=== PATIENT | male | born 1970 | race Caucasian/White ===

== ENCOUNTER 2020-03-05 12:56 | Emergency (ER) | payer OTHER, SELFPAY ==
[2020-03-05] VITALS (9 sets, daily range): BP systolic 155–174; BP diastolic 106–119; PULSE 90–108; RESP 16–20; TEMP 36.6; O2SAT 95–99; BMI 32.8
--- NOTE | 2020-03-05 13:02 | NURSING ---
NO OLD EKGS
--- NOTE | 2020-03-05 13:18 | CT_ITS ---
STUDY: CT BRAIN WITHOUT CONTRAST REASON FOR EXAM: Male, 49 years old. Headache, hypertensive crisis, chest pain. RADIATION DOSAGE (If Supplied By Facility): CTDIvol = ( 44.99 ) mGy, DLP = ( 796.11 ) mGycm TECHNIQUE: Transaxial CT imaging of the brain was performed without administration of intravenous contrast material. Individualized dose optimization techniques were used for this CT. COMPARISON: No relevant priors. FINDINGS: Normal soft tissue structures. Normal calvarium. Normal size ventricles and extra-axial spaces for the patient''s age. Normal white matter tracts of the cerebral hemispheres. Normal basal ganglia and thalami. Normal brainstem. Normal cerebellum. There is no intracranial hemorrhage. There are no findings of an acute ischemic infarction. Normal visualized paranasal sinuses. CT/Brain/Head without Contrast IMPRESSION: Normal unenhanced CT scan of the brain. Electronically Signed: Akash Nash, at 14:25 EDT , Service support ,
--- NOTE | 2020-03-05 13:18 | EKG12_ITS ---
Test Reason : CP Blood Pressure : / mmHG Vent. Rate : 093 BPM Atrial Rate : 093 BPM P-R Int : 132 ms QRS Dur : 094 ms QT Int : 358 ms P-R-T Axes : 016 003 024 degrees QTc Int : 445 ms Normal sinus rhythm Normal ECG Confirmed by LEANN PHIPPS, TYRESE ([id number]), supervising editor news reel KARISSA LEE ([id number]) on 03/07/2020 9:35:45 AM Referred By: DC Confirmed By:VERN NORIEGA MD
[2020-03-05 13:31] LABS: Absolute Lymphocyte Count 2.19 X10^3/uL (0.83-4.51); Basophil# 0.03 X10^3/uL; Basophil% 0.4 % (0-1); Eosinophil# 0.11 X10^3/uL; Eosinophils% 1.6 % (0-5); Hematocrit 41.4 % (40-54); Hemoglobin 14.4 g/dL (13.0-16.5); Lymphocyte # 2.19 X10^3/ul (4.0); Lymphocyte % 31.6 % (19-41); Mean Corp Hgb Conc 34.8 g/dL (32-36); Mean Corpuscular Hgb 30.6 pg (27.0-32.0); Mean Corpuscular Volume 88.1 fL (80-94); Mean Platelet Vol. 9.1 fl (6.2-12.0); Monocyte# 0.57 X10^3/uL; Monocyte% 8.2 % (0-10); NRBC Flagged by Analyzer 0 % (0-5); Neutrophil # 3.98 X10^3/uL (2.7-7.7); Neutrophil % 57.6 % (47-70); Platelet Count 264 K/mm3 (150-450); RBC Distribution Width CV 12.5 % (11.6-14.6); RBC Distribution Width SD 40.9 fl (35.1-43.9); White Blood Count 6.9 K/mm3 (4.4-11.0)
[2020-03-05 13:47] LABS: Anion Gap 4 (5-15); BUN 15 mg/dL (7-18); BUN/Creat Ratio 16.2 RATIO (10-20); Calcium,Total 9.7 mg/dL (8.5-10.1); Chloride 103 mmol/L (98-107); Creatinine, Serum 0.93 mg/dL (0.70-1.30); EST Glomerular Filtration Rate 91 mL/min (>60); Est Glom Filt Rate - Afr Amer 110 mL/min (>60); Estimated Creatinine Clearance 103.14 ml/min; Glucose 92 mg/dL (74-106); Potassium 3.5 mmol/L (3.5-5.1); Sodium Level 135 mmol/L (136-145)
[2020-03-05] MEDS: Nitroglycerin SL (ED/IMG/CATH) 0.4 MG TABLET SUBLINGUAL ×3 (13:55→14:05)
--- NOTE | 2020-03-05 13:58 | ED.RN ---
PT VERY ANXIOUS C/O CHEST PAIN AND PALPITATIONS, REQUESTED NITRO. [address] CHURCH. PT REPEATEDLY KEPTS LOOKING AT MONITOR.
--- NOTE | 2020-03-05 14:04 | ED.DCSUM_ITS ---
- ER Visit Summary Date of Service: 03/05/20 Chief Complaint: Headache and chest pain History of Present Illness: The patient is a 49 M who presents today for hypertensive crisis. He said that for the last couple days his blood pressures have been high and he is having a headache with chest pain. He also had some blurred vision. He has been seen for this in the past. He takes his blood pressure medicines regularly and has not run out. He denies any history of coronary disease, stroke. His blood pressure at home was 170/120s. Physical Examination: Blood pressure 155/110 and heart rate 108. Otherwise vitals unremarkable. Afebrile. Cranial nerves grossly intact. No focal or lateralizing neurologic abnormalities. NIH stroke scale is 0. Heart is tachycardic regular. Lungs clear. Skin unremarkable. Extremities nontender with no edema. Test Results: EKG shows sinus rhythm at a rate of 93. No sign of ischemia or infarction pattern. CBC normal. Sodium 135, anion gap 4, troponin normal. Chest x-ray and CT brain pending. Emergency Department Course and Treatment: Patient's blood pressure is slightly elevated. He has vague symptoms. I am not convinced he has endorgan damage, but with his history and his symptoms, I will evaluate for this. So far his work-up has been unremarkable. I am awaiting CT brain and chest x-ray. Patient continued to have a blood pressure of 159/116. He requested nitro as this has helped in the past. I believe this is reasonable. Will reassess. CT brain and chest x-ray were unremarkable. Patient remained slightly hypertensive. He was treated with Catapres 0.1 mg p.o. Will recheck his blood pressure and discharge for outpatient follow-up. Treatment Plan: As above Disposition: Pending Impression: Hypertension This note was generated with [employer] dictation software. It may contain incorrect words, spelling, and punctuation that were not noted in review of the chart prior to signing ED Disposition - Plan for ED Patient: Referrals: Care Physician,No Primary [Primary Care Provider] -
--- NOTE | 2020-03-05 14:11 | RAD_ITS ---
STUDY: X-RAY CHEST REASON FOR EXAM: Male, 49 years old. Chest pain, hypertensive TECHNIQUE: Single AP portable view of the chest. COMPARISON: None. FINDINGS: EKG electrodes are seen. The lungs are clear and expanded. Scattered calcified granulomas. There is no demonstrated pleural abnormality. Normal size heart. Normal mediastinum and brigid. Normal visualized pulmonary arteries. Normal visualized aortic arch and descending thoracic aorta. Normal visualized thoracic spine. Normal visualized ribs, clavicles, and shoulders. There is no demonstrated abnormality of the visualized soft tissue structures of the upper abdomen. RAD/Chest 1 View (Portable) IMPRESSION: Normal x-ray examination of the chest. Electronically Signed: Akash Nash, at 14:26 EDT , Service support ,
--- NOTE | 2020-03-05 14:35 | ED.DEP ---
ED Disposition - Plan for ED Patient: Instructions: ED Hypertension Established Additional Instructions: follow up with your doctor
[2020-03-05] MEDS: cloNIDine HCl 0.1 MG Tablet PO (15:15)
--- NOTE | 2020-03-05 15:22 | ED.RN ---
IV DC'ED, CATHETER INTACT, SMALL GAUZE DRESSING PLACED. DISCHARGE INSTRUCTIONS GIVEN TO AND REVIEWED WITH PATIENT, PATIENT DENIES QUESTIONS OR CONCERNS AND VOICES UNDERSTANDING OF DISCHARGE INSTRUCTIONS. PT AMBULATES OUT OF ROOM WITHOUT DIFFICULTY.
== END 2020-03-05 15:23 | disposition home or self-care (01) ==
LOC: ED 13:39
PROVIDERS: Emergency Provider Emergency Medicine
DX: I10 Essential (primary) hypertension (principal)
CPT/HCPCS: 70450; 71045; 80048; 84484; 85025; 93005; 99285; A4216

== ENCOUNTER → 2023-04-05 | Outpatient (CLI) | payer OTHER, SELFPAY ==
[2023-04-05 13:03] LABS: Hemoglobin A1c 5.2 % (3.8-5.6)
[2023-04-05 13:30] LABS: ALB/GLOB Ratio 1.1 RATIO (0.9-2.4); AST(SGOT) 20 U/L (15-37); Alanine Aminotransfer ALT/SGPT 28 U/L (16-61); Albumin, Serum 3.9 g/dL (3.2-5.0); Alkaline Phosphatase 106 U/L (45-117); Anion Gap 6 (5-15); BUN 14 mg/dL (7-18); BUN/Creat Ratio 13.3 RATIO (10-20); Calcium,Total 9.3 mg/dL (8.5-10.1); Chloride 99 mmol/L (98-107); Cholesterol 193 mg/dL (200); Creatinine, Serum 1.05 mg/dL (0.70-1.30); EST Glomerular Filtration Rate 78 mL/min (>60); Est Glom Filt Rate - Afr Amer 94 mL/min (>60); Globulin 3.5 g/dL (2.2-4.2); Glucose 109 mg/dL (74-106); High Density Lipoprotein 61 mg/dL; Protein, Total 7.4 g/dL (6.4-8.2); Sodium Level 135 mmol/L (136-145); Thyroid Stim Hormone (TSH) 0.46 uIU/mL (0.358-3.74); Triglycerides 52 mg/dL; Very Low Density Lipoprotein 10 mg/dL (5-40)
== END | disposition home or self-care (01) ==
LOC: BIMLAB 09:54
PROVIDERS: Visit Provider Internal Medicine
DX: E03.9 Hypothyroidism, unspecified (principal); I10 Essential (primary) hypertension; Z79.899 Other long term (current) drug therapy
CPT/HCPCS: 36415; 80053; 80061; 83036; 84443

== ENCOUNTER → 2023-06-30 | Outpatient (CLI) | payer OTHER, SELFPAY ==
[2023-06-30 15:08] LABS: Absolute Neutrophil Count 3.1 X10^3/uL (2.0-7.7); Basophil# 0.01 X10^3/uL; Basophil% 0.2 % (0-1); Hematocrit 40.6 % (40-54); Hemoglobin 13.7 g/dL (13.0-16.5); Lymphocyte % 26.2 % (19-41); Mean Corp Hgb Conc 33.7 g/dL (32-36); Mean Corpuscular Hgb 30.3 pg (27.0-32.0); Mean Corpuscular Volume 89.8 fL (80-94); Mean Platelet Vol. 9.1 fl (6.2-12.0); Monocyte# 0.43 X10^3/uL; Monocyte% 8.7 % (0-10); NRBC Flagged by Analyzer 0 % (0-5); Neutrophil # 3.12 X10^3/uL (2.7-7.7); Neutrophil % 62.7 % (47-70); Platelet Count 265 K/mm3 (150-450); RBC Distribution Width CV 13.1 % (11.6-14.6); RBC Distribution Width SD 43.2 fl (35.1-43.9); Red Blood Count 4.52 M/mm3 (4.6-6.2)
[2023-06-30 15:15] LABS: Vitamin B12 373 pg/mL (211-911); Vitamin D,25 Hydroxy 31.8 ng/mL
[2023-06-30 15:22] LABS: AST(SGOT) 23 U/L (15-37); Alanine Aminotransfer ALT/SGPT 35 U/L (16-61); Albumin, Serum 3.7 g/dL (3.2-5.0); Alkaline Phosphatase 97 U/L (45-117); Anion Gap 3 (5-15); BUN 13 mg/dL (7-18); BUN/Creat Ratio 11.8 RATIO (10-20); Calcium,Total 9.4 mg/dL (8.5-10.1); Chloride 103 mmol/L (98-107); EST Glomerular Filtration Rate 74 mL/min (>60); Est Glom Filt Rate - Afr Amer 89 mL/min (>60); Globulin 3.7 g/dL (2.2-4.2); Glucose 94 mg/dL (74-106); Potassium 4.1 mmol/L (3.5-5.1); Protein, Total 7.4 g/dL (6.4-8.2); Sodium Level 139 mmol/L (136-145); Thyroid Stim Hormone (TSH) 1.62 uIU/mL (0.358-3.74)
== END | disposition home or self-care (01) ==
LOC: BIMLAB 12:19
PROVIDERS: PCP Internal Medicine; Referring Provider Internal Medicine; Visit Provider Internal Medicine
DX: I10 Essential (primary) hypertension (principal); E03.9 Hypothyroidism, unspecified; R53.83 Other fatigue
CPT/HCPCS: 36415; 80053; 82306; 82607; 84443; 85025

== ENCOUNTER → 2023-07-05 | Outpatient (CLI) | payer OTHER, SELFPAY ==
--- NOTE | 2023-07-05 11:11 | RAD_ITS ---
STUDY: X-RAY - CERVICAL SPINE REASON FOR EXAM: Male, 52 years old. Neck pain status post previous fusion. TECHNIQUE: 6 view(s) of the cervical spine were obtained. COMPARISON: None FINDINGS: Normal anterior atlantoaxial articulation. Normal odontoid process. Normal cervical lordosis. Diffuse moderate uncovertebral and facet sclerosis. Anterior fusion at C5-6 with intervertebral disc prosthesis. Intervertebral disc space narrowing at C4-5 and C6-7 with osteophytes. Anterior bony neural foraminal encroachment at C5-6 and C6-7 bilaterally. Left carotid calcification. RAD/Cerv Spine 4 or 5 Views IMPRESSION: Anterior fusion at C5-6 with intervertebral disc prosthesis. Diffuse cervical spondylosis most marked at C4-5 and C6-7. Left carotid calcification. Electronically Signed: Sd Bergeron MD at 9:28 EDT ,
== END | disposition home or self-care (01) ==
LOC: MTRAD 11:11
PROVIDERS: PCP Internal Medicine; Referring Provider Internal Medicine; Visit Provider Internal Medicine
DX: M54.2 Cervicalgia (principal); Z98.1 Arthrodesis status
CPT/HCPCS: 72050

== ENCOUNTER 2023-07-20 05:49 | Day surgery (SDC) | payer OTHER, SELFPAY ==
[2023-07-20] VITALS (7 sets, daily range): BP systolic 131–148; BP diastolic 95–108; PULSE 84–99; RESP 16–18; TEMP 36.4–36.6; O2SAT 94–99; BMI 34.4
[2023-07-20] MEDS: Lactated Ringers 1,000 ML 15 ML IV (06:22)
--- NOTE | 2023-07-20 07:03 | PCM.HP.STD ---
HPI - General HPI Narrative JERARDO OSWALD, is a 52 M who presents for left knee arthroscopy, partial medial meniscectomy. No changes to H and P. RAB discussed, post op protocol, narcotic counselling. He has had percocet in the past without issue despite morphine anaphylaxis. L knee marked, ok to proceed. MR#: [id number] Acct: [id number] Name: JERARDO OSWALD Rep #: [id number] : 1970 Provider: Dr. Lucian Philip MD Age/Sex: 52/M Location[place] [facility] [place] Status: Signed Intake Intake Visit Reasons: left knee Chief Complaint: left knee Is patient in pain?: Yes Pain scale (1-10): 4 Allergies Sulfa (Sulfonamide Antibiotics) Allergy (Severe, Verified 05/24/23 08:48) Hivesmorphine Allergy (Verified 05/24/23 08:48) AnaphylaxisPenicillins [PCN] Allergy (Verified 05/24/23 08:48) Anaphylaxis Medications hydrochlorothiazide 25 mg tablet 25 mg PO DAILY 03/05/20 [History Confirmed 05/24/23] levothyroxine 50 mcg tablet 75 mcg PO DAILY 03/30/23 [History Confirmed 05/24/23] esomeprazole magnesium 20 mg capsule,delayed release (Nexium) 20 mg PO DAILY 04/05/23 [History Confirmed 05/24/23] ibuprofen 200 mg tablet 400 mg PO Q6H PRN 04/14/23 [History Confirmed 05/24/23] irbesartan 300 mg tablet 300 mg PO DAILY #90 tabs 04/26/23 [Rx Confirmed 05/24/23] quetiapine 50 mg tablet 50 mg PO DAILY sleep #90 tabs 04/26/23 [Rx Confirmed 05/24/23] PFSH Medical History Allergies Carpal tunnel syndrome GERD (gastroesophageal reflux disease) Hearing problem History of back problems History of blood transfusion History of frequent headaches Hypertension Medial meniscus tear Neuropathy Osteoarthritis Plantar fasciitis, left Tear of medial meniscus of left knee Thyroid disease Surgical History H/O inguinal hernia repair H/O shoulder surgery H/O total hip arthroplasty History of appendectomy History of carpal tunnel release History of surgical procedure History of tonsillectomy S/P cholecystectomy Status post cervical spinal fusion Family History Mother Alcoholism Anxiety Arthritis Depression Hypertension Heart disease Mental disorder CVA (cerebral vascular accident) Thyroid disorder Atrial fibrillation DementiaUnknown ParkinsonsOther Allergies Social History household members: none current occupational status: retired current occupation: Smoking Status: Never smoker Electronic Cigarette Use: not used alcohol intake: current alcohol intake frequency: a few times a week substance use type: does not use do you feel safe at home: Yes HPI left knee Details: Parts of this documentation were recorded by a scribe, this documentation accurately reflects the service provided and the decisions made by me, Dr. Lucian Philip MD 05/24/23 0847. JERARDO OSWALD is a 52 year old M here today for FU left knee pain, medial meniscus tear. Patient continues to have mechanical symptoms as well as pain mostly on the medial joint line and slightly posterior to that. Feels like the knee is slightly swollen there. Ortho Exam General General: Yes no acute distress Neurologic: Yes alert and Yes oriented x3 Psychologic: Yes reasonable and appropriate Left Knee Skin/Wound: Yes CDI, No ecchymosis, No erythema and No swelling Knee ROM: Yes ROM-Flexion 0-140 KNEE: Slightly varus alignment. Normal gait. Supplemental Info I reviewed the reports from an outside hospital in [place] IR.? There is x-rays of the left knee taken within the last year stating mild tricompartmental osteoarthritis.? There is also an MRI in June 2022 stating a complex tear of the mid body and posterior horn of the medial meniscus with the cartilage being preserved and no other abnormalities of the knee.? I was able to review those on spectra viewer - concur with the MM tear assessment. Coding Level of Care Code Off vis,est,level 3 Diagnoses Tear of medial meniscus of left knee S83.242A Assessment and Plan Assessment and Plan (1) Tear of medial meniscus of left knee: Status: Acute Plan: 52-year-old man with continued left knee pain despite extensive conservative management including 2 cortisone injections with continued mechanical symptoms and medial joint line tenderness with an MRI showing a medial meniscus tear surgical option at this point would be left knee arthroscopy, partial medial meniscectomy. He wishes to go ahead with the operation and signed the consent form for surgery as well as possible need for blood products. He is otherwise healthy non-smoker. He occasionally does take anti-inflammatories I have asked him to refrain from that for about a week before the operation. We talked about pros and cons versus benefits as well as recovery associate with surgery 1 to 2 weeks on crutches 6 weeks before returning to normal activities. He understands no further questions or concerns. Pros and cons risks and benefits were discussed with the patient including but not limited to infection, pain, stiffness, bleeding, damage to surrounding structures, neurovascular injury, recurrence or retear, failure or wear of hardware or fixation, instability, fracture, deep vein thrombosis and pulmonary embolism, anesthetic risks, , patient dissatisfaction, need for further surgery and other risks. Patient understood and wished to proceed with surgery, and signed the informed consent documentation. [facility] Medical History (Updated 07/13/23 @ 10:45 by Madi Amaya) Allergies Anxiety Arthritis Carpal tunnel syndrome Depression Fusion of spine of cervical region GERD (gastroesophageal reflux disease) Hearing problem History of back problems History of blood transfusion History of frequent headaches Hypertension Medial meniscus tear Neuropathy Non-smoker Osteoarthritis Plantar fasciitis, left TBI (traumatic brain injury) Tear of medial meniscus of left knee Thyroid disease Wears glasses Home Medications hydrochlorothiazide 25 mg tablet 50 mg PO DAILY 03/05/20 [History Last Taken Unknown] levothyroxine 50 mcg tablet 75 mcg PO DAILY 03/30/23 [History Last Taken Unknown] esomeprazole magnesium 20 mg capsule,delayed release (Nexium) 20 mg PO DAILY PRN GERD 04/05/23 [History Last Taken Unknown] ibuprofen 200 mg tablet 400 mg PO Q6H PRN pain 04/14/23 [History Last Taken Unknown] irbesartan 300 mg tablet 300 mg PO DAILY #90 tabs 04/26/23 [Rx Last Taken Unknown] epinephrine 0.3 mg/0.3 mL injection, auto-injector 0.3 ml IM Q5-15M PRN anaphylaxis #2 ea 06/30/23 [Rx Last Taken Unknown] quetiapine 100 mg tablet 100 mg PO DAILY sleep #30 tabs 06/30/23 [Rx Last Taken Unknown] ondansetron 4 mg disintegrating tablet 4 mg PO Q6H PRN nausea and vomiting #30 tabs 07/07/23 [Rx Last Taken Unknown] Allergy/AdvReac Type Severity Reaction Status Date / Time Sulfa (Sulfonamide Allergy Severe Hives Verified 07/20/23 06:09 Antibiotics) morphine Allergy Anaphylaxis Verified 07/20/23 06:09 Penicillins [PCN] Allergy Anaphylaxis Verified 07/20/23 06:09 Family History Mother Alcoholism Anxiety Arthritis Depression Hypertension Heart disease Mental disorder CVA (cerebral vascular accident) Thyroid disorder Atrial fibrillation Dementia Unknown Parkinsons Other Allergies Surgical History H/O inguinal hernia repair H/O shoulder surgery H/O total hip arthroplasty History of appendectomy History of carpal tunnel release History of surgical procedure History of tonsillectomy S/P cholecystectomy Status post cervical spinal fusion Social History household members: none current occupational status: retired current occupation: Smoking Status: Never smoker Electronic Cigarette Use: not used alcohol intake: current alcohol intake frequency: a few times a week substance use type: does not use do you feel safe at home: Yes Vital Signs Vital Signs Vital Signs: 07/20/23 06:17 07/20/23 06:17 Temperature 97.9 F Temperature Source Temporal Pulse Rate 95 Respiratory Rate 16 Respiratory Pattern Normal Blood Pressure 135/103 H Blood Pressure Mean 113 Blood Pressure Source Monitor Blood Pressure Position Semi-Fowlers Blood Pressure Location Left Arm Pulse Ox 96 Oxygen Delivery Method Room Air Weight Weight: 253 lb 8.505 oz Body Mass Index (BMI) 34.4
[2023-07-20] MEDS: Epinephrine (1 mg/ml) 1 MG/ML VIAL (07:30)
[2023-07-20] MEDS: Clindamycin 900 MG/50 ML BAG 75 MG IV (07:37)
[2023-07-20] MEDS: Bupivacaine 0.25% 30 ML Vial (08:08)
--- NOTE | 2023-07-20 08:11 | PCM.OPRPT ---
Problems Associated Problem List Diagnoses (1) Tear of medial meniscus of left knee: Report of Operation Date of Procedure: 07/20/23 Pre-Operative Diagnosis: L knee medial meniscus tear Post-Operative Diagnosis: same Surgery/Procedure Performed:: left knee arthroscopy, partial medial meniscectomy Surgeon: Lucian Philip Type of Anesthesia: General and Local Anesthesiologist: Dread Morales Estimated Blood Loss (mL): 10 Description of Procedure: Patient brought to the operating room theater. Placed supine on the table. General anesthesia induced. Bony prominences padded. SCD on the nonoperative leg. Clindamycin 900 mg IV given for prophylaxis due to penicillin anaphylaxis allergy. 34 inch tourniquet applied to the left thigh appropriately padded. Stress positioner to the patient's left side. Lower extremity prepped and draped with chlorhexidine-based prep solution allowing over 3 minutes drying time prior to draping. Preoperative timeout performed to confirm the site patient and the surgery. I began by elevating the limb inflating the tourniquet to 250 mmHg. Use standard anterolateral and anteromedial arthroscopy portals. Did a full diagnostic arthroscopy. No loose bodies. Patellofemoral cartilage as well as cartilage on the lateral compartment of the knee was normal. Patella sitting normally in the groove. Ligamentum mucosum debrided ACL and PCL appeared normal and stable to probing. Lateral meniscus normal appearance and stable to probing. Into the medial compartment there is mild grade 1 changes on the distal femur and proximal tibia as well. Matching with the MRI there was indeed a medial meniscus tear at the mid body to slightly posterior to this. Roots were stable. This was a complex tear which included a radial component. I used shaving instrument to debride the tear to stable margins. Removed about 5% total meniscus area. There was a small peripheral rim remaining with a stable meniscus anterior and posterior to this. Pictures taken and saved throughout the case onto the system. Tourniquet let down. Hemostasis achieved. 10 cc of quarter percent bupivacaine instilled in around the portal sites. Skin cleaned with wet and dry dressing followed application of Steri-Strips Adaptic 4 x 4 gauze ABD dressings and 6 inch Seth bandage loosely wrapped. Patient woken up from the general anesthetic transferred off the operating table taken to postanesthetic care unit in stable condition. All sponge needle instrument counts were correct no complications. Plan to the patient weightbearing as tolerated with crutches 1 to 2 weeks follow-up in the office in 2 days time. CPT? code 22815 indicates a meniscectomy in either the medial or lateral compartment Complications none Admit VTE Documentation VTE Present on Admission: No VTE Mechan Device Prophylaxis: SCD's VTE Pharm Prophylaxis ordered?: No Reason prophylaxis not ordered:: Treatment Not Indicated Procedures Musculoskeletal 20xxx-29xxx: Other Procedure See Report
--- NOTE | 2023-07-20 08:17 | DCINST_ITS ---
Discharge Instructions Diet Discharge Diet: No restrictions Activity Ice area for (Minutes): 10 Weight Bearing Status: Weight bearing as tolerated Keep extremity elevated above heart level: Operative Extremity Additional Activity Instructions:: crutches as needed 1-2 weeks, ok for full ROM of knee Dressing / Incision Call your doctor if your incision/area has: Continuous Slow Oozing, Sudden Increased Bleeding, Increased Pain/ Swelling, Increased Redness, Foul Smelling Discharge and Swelling at the incision site Change Dressing in: leave in place till F/U Cleanse incision/area with: Keep Dressing Clean & Dry Follow Up Care Please Follow Up With: Lucian Philip MD When: 2 days Test Results: Test results from this visit will be discussed in further detail at your follow- up appointment, if applicable. Discharge Plan Admission Attending Provider: Lucian Philip Primary Care Provider: Muna Nicolas Instructions Patient Instructions: After Knee Arthroscopy Discharge Orders/Prescriptions Prescriptions: New oxycodone-acetaminophen [Percocet] 5-325 mg tablet 1 tab PO Q6H MDD 6 PRN (Reason: pain) 5 Days Qty: 14 0RF No Action esomeprazole magnesium [Nexium] 20 mg capsule,delayed release(DR/EC) 20 mg PO DAILY PRN (Reason: GERD) Rx Instructions: 1-2 TABS ibuprofen 200 mg tablet 400 mg PO Q6H PRN (Reason: pain) quetiapine 100 mg tablet 100 mg PO DAILY Qty: 30 2RF epinephrine 0.3 mg/0.3 mL auto-injector 0.3 ml IM Q5-15M PRN (Reason: anaphylaxis) Qty: 2 0RF Rx Instructions: do not exceed 3 doses per episode hydrochlorothiazide 25 MG tablet 50 mg PO DAILY levothyroxine 50 mcg tablet 75 mcg PO DAILY irbesartan 300 mg tablet 300 mg PO DAILY Qty: 90 0RF ondansetron 4 mg tablet,disintegrating 4 mg PO Q6H PRN (Reason: nausea and vomiting) Qty: 30 0RF Referrals / Follow Up: Muna Nicolas MD [Primary Care Provider] - Lucian Philip MD [Med Staff - Active Staff] - Disposition Disposition (needs filled in before D/C Order can be placed): Home, Self Care
[2023-07-20] MEDS: Oxycodone/Apap 5/325 Tablet PO (09:43)
[2023-07-20] MEDS: proMETHazine 25 MG Tablet 12.5 MG PO (10:00)
== END 2023-07-20 10:04 | disposition home or self-care (01) ==
LOC: SDC 05:50 → AC 05:52
PROVIDERS: PCP Internal Medicine; Referring Provider Orthopaedic Surgery Sports Medicine; Visit Provider Orthopaedic Surgery Sports Medicine
PROC: (CPT 29870; principal; 2023-07-20 07:10)
DX: S83.242A Other tear of medial meniscus, current injury, left knee, initial encounter (principal); I10 Essential (primary) hypertension; K21.9 Gastro-esophageal reflux disease without esophagitis; F51.04 Psychophysiologic insomnia; E03.9 Hypothyroidism, unspecified; Z87.820 Personal history of traumatic brain injury
CPT/HCPCS: 29881; 01400; J7120; J2405

== ENCOUNTER → 2023-09-22 | Outpatient (CLI) | payer OTHER, SELFPAY ==
[2023-09-22 12:34] LABS: Erythrocyte Sedimentation Rate 11 mm/hr (0-20)
[2023-09-22 13:54] LABS: CRP < 2.90 mg/L (0.0-3.0)
[2023-09-23 12:08] LABS: ANTINUCLEAR ANTIBODIES DIRECT Negative (Negative); Anti-Centromere B Ab <0.2 AI (0.0-0.9); Anti-Chromatin <0.2 AI (0.0-0.9); Anti-Jo <0.2 AI (0.0-0.9); Anti-Scleroderma-70 AB <0.2 AI (0.0-0.9); Anti-dsDNA Ab 1 IU/mL (0-9); RNP Ab 0.3 AI (0.0-0.9); SJOGREN'S Anti-SS-A test < 0.2 AI (0.0-0.9); SJOGREN'S Anti-SS-B test < 0.2 AI (0.0-0.9); Smith Ab <0.2 AI (0.0-0.9)
[2023-09-23 13:07] LABS: CCP IgG Antibodies 0 units (0-19)
== END | disposition home or self-care (01) ==
LOC: BIMLAB 09:35
PROVIDERS: PCP Internal Medicine; Referring Provider Internal Medicine; Visit Provider Internal Medicine
DX: M25.50 Pain in unspecified joint (principal); G89.29 Other chronic pain
CPT/HCPCS: 36415; 85652; 86038; 86140; 86200; 86225; 86235

== ENCOUNTER → 2024-01-12 | Outpatient (CLI) | payer OTHER, SELFPAY ==
--- NOTE | 2024-01-12 12:44 | CT_ITS ---
STUDY: CT ABDOMEN AND PELVIS WITH CONTRAST REASON FOR EXAM: Male, 53 years old. Possible inguinal hernia -- PO and IV contrast. Prior appendectomy. RADIATION DOSAGE (If Supplied By Facility): CTDIvol = ( 13.00 ) mGy, DLP = ( 1213.44 ) mGycm TECHNIQUE: Transaxial images were obtained from the dome of the diaphragm to the symphysis pubis with oral contrast. Oral and amp; IV Readi-CAT and amp; 100mL Isovue-300 was administered. Sagittal and coronal images were reconstructed. Individualized dose optimization techniques were used for this CT. COMPARISON: None. FINDINGS: The visualized lung bases are unremarkable. Mild coronary artery calcification. There is decreased attenuation of the liver consistent with steatosis. There are surgical clips in the gallbladder fossa consistent with a prior cholecystectomy. Normal spleen. Normal pancreas. Normal bilateral adrenal glands. Normal right kidney. Normal left kidney. There is a small hiatal hernia. Normal small intestine. Normal colon. The patient is status post appendectomy. There is scattered atherosclerotic calcification of the abdominal aorta, without a demonstrated aneurysm. Normal inferior vena cava. Normal retroperitoneum. Normal urinary bladder. Normal abdominal wall. There are mild degenerative changes of the visualized lumbar spine. The patient is status post bilateral total hip preplacement. CT/Abdomen/Pelvis WITH Contrast IMPRESSION: Fatty infiltration of the liver. Status post cholecystectomy. Electronically Signed: Akash Nash MD at 13:16 EST ,
[2024-01-12 13:08] LABS: EGFR FINGERSTICK > 60.0000 mL/min (>60)
--- OUTSIDE RECORDS SUMMARY | 2024-01-12 18:52 | XMS RPT_ITS | CCD ---
Author Name Unknown Address [facility] [address] [place] [id number] Organization [facility] Care Team Providers Care Radiological Technologist Name Role Phone REN PHIPPS, SATISH Scott Primary Care Physician REN PHIPPS, SATISH Scott Primary Care Unavailable LISSETH PHIPPS, DR PILAR Naik Attending Emory Pearson MD, DR PILAR Naik Attending Emory Sol MD, SATISH Scott Primary Care Unavailable Results Test Name Value Interpretation Reference Range Facil ity Encounters Encounter Date Encounter Type Care Provider Facility Start: 10-31-2023 End: 11-01-2023 ambulatory SATISH MCCLURE MD Facility:[facility] Start: 10-31-2023 End: 10-31-[address] PILAR MONTANEZ MD [facility] Start: 10-18-2023 End: 10-19-[address] PILAR MONTANEZ MD Facility:[facility] Payers Date Payer Category Payer [employer] ( and others) [id number] 1970 Unknown [id number] 1970 Unknown [id number] Social History Date Type Detail Facility Tobacco smoking status No Smoking Status Entered [facility] Sex Assigned At Male [facility] Evaluation + Plan note Note Date & Type Note Facility Evaluation + Plan note No data available for this section [facility] Hospital Discharge instructions Note Date & Type Note Facility Hospital Discharge instructions No data available for this section [facility] Progress note Note Date & Type Note Facility Progress note No data available for this section [facility] Summary Purpose Family History No Family History Records Found Advance Directives No Advanced Directives Records Found Additional Source Comments Patient Care team informatio n (unrecognized section and content) Care Team Personnel Name: SATISH MCCLURE MD Member Role: Primary Care Physician Address: Address: [place] [address] (unrecognized sect ion and content) No Status Records Found INFORMATION SOURCE (unrecogn ized section and content) FOR RECORDS PERTAINING TO PATIENTS WHO ARE OR HAVE BEEN ENROLLED IN A CHEMICAL DEPENDENCY/SUBSTANCEABUSE PROGRAM, SOME INFORMATION MAY BE OMITTED. This clinical summary was aggregated from multiple sources. Caution should be exercised in using it in the provision of clinical care. This summary normalizes information from multiple sources, and as a consequence, information in this document may materially change the coding, format and clinical context of patient data. In addition, data may be omitted in some cases. CLINICAL DECISIONS SHOULD BE BASED ON THE PRIMARY CLINICAL RECORDS. [facility] [employer] provides no warranty or guarantee of the accuracy or completeness of information in this document.
== END | disposition home or self-care (01) ==
PROVIDERS: PCP Internal Medicine; Referring Provider Surgery; Visit Provider Surgery
DX: K40.90 Unilateral inguinal hernia, without obstruction or gangrene, not specified as recurrent (principal)
CPT/HCPCS: 74177; Q9967

== ENCOUNTER 2024-01-19 07:40 | Day surgery (SDC) | payer OTHER, SELFPAY ==
[2024-01-19] VITALS (7 sets, daily range): BP systolic 97–148; BP diastolic 57–98; PULSE 66–89; RESP 16–18; TEMP 36.2–36.9; O2SAT 94–99; BMI 35.4
[2024-01-19] MEDS: Lactated Ringers 1,000 ML 15 ML IV (08:02)
--- OUTSIDE RECORDS SUMMARY | 2024-01-19 08:06 | XMS RPT_ITS | CCD ---
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 Name Role Phone REN PHIPPS, SATISH Scott [...] Patient encounter procedure DR PILAR MONTANEZ MD [facility] Start: 10-18-2023 End: 10-19-[address] PILAR MONTANEZ MD Facility:B Payers Date Payer Category Payer [employer] ( and others) [id number] 1970 Unknown [id number] 1970 Unknown [id number] Social History Date Type Detail Facility Tobacco smoking status No Smoking Status Entered [facility] Sex Assigned At Male [facility] Evaluation + Plan note Note Date & Type Note Facility Evaluation + Plan note No data available for this section [facility] Hospital Discharge instructions Note Date & Type Note Facility Hospital Discharge instructions No data available for this section [facility] Progress note Note Date & Type Note Facility Progress note No data available for this section [facility] Summary Purpose Family History No Family History Records Found Advance Directives No Advanced Directives Records Found Additional Source Comments Patient Care team informatio n (unrecognized section and content) Care Team Personnel Name: SATISH MCCLURE MD Member Role: Primary Care Physician Address: Address: PRANAY ALAMOI [address] (unrecognized sect ion and content) No [...] BE BASED ON THE PRIMARY CLINICAL RECORDS. [facility] [employer] provides no warranty or guarantee of the accuracy or completeness of information in this document.
--- NOTE | 2024-01-19 08:52 | PCM.HP.BLA ---
History and Physical Date of Admission: 01/19/24 Date of Service: 11/02/23 MR#: [id number] Acct: [id number] Name: JERARDO OSWALD Rep #: [id number] : 1970 Provider: Dr. Jerardo Em MD Age/Sex: 53/M Location: [facility] Status: Signed Intake Vital Signs 09/22/2308:31 11/02/2314:38 11/02/2315:22 Height 6 ft 6 ft Weight: 253 lb BMI 34.3 BP 154/110 H 179/118 H 164/123 H Blood Pressure Location Lt brachial Rt brachial Rt brachial Position Sitting Sitting Sitting Respiration 16 16 Pulse 107 H Pulse Source Monitor Temp 97.5 F L Temp Source Temporal Pulse Oximetry (%) 99 Oxygen Delivery Method room air Intake Visit Reasons: Gastroesophageal reflux disease (GERD) Chief Complaint: GERD Web Content Writer Required: No Is patient in pain?: No Allergies Sulfa (Sulfonamide Antibiotics) Allergy (Severe, Verified 11/02/23 14:39) Hivesmorphine Allergy (Verified 11/02/23 14:39) AnaphylaxisPenicillins [PCN] Allergy (Verified 11/02/23 14:39) Anaphylaxis Medications hydrochlorothiazide 25 mg tablet 50 mg PO DAILY 03/05/20 [History Confirmed 11/02/23] ibuprofen 200 mg tablet 400 mg PO Q6H PRN pain 04/14/23 [History Confirmed 11/02/23] epinephrine 0.3 mg/0.3 mL injection, auto-injector 0.3 ml IM Q5-15M PRN anaphylaxis #2 ea 06/30/23 [Rx Confirmed 11/02/23] pantoprazole 40 mg tablet,delayed release (Protonix) 40 mg PO DAILY #30 tabs 09/22/23 [Rx Confirmed 11/02/23] promethazine 12.5 mg tablet 12.5 mg PO Q6H PRN nausea and vomiting #20 tabs 09/22/23 [Rx Confirmed 11/02/23] propranolol 60 mg capsule,24 hr,extended release 60 mg PO DAILY #30 caps 09/22/23 [Rx Confirmed 11/02/23] trazodone 150 mg tablet 150 mg PO QHS #30 tabs 09/22/23 [Rx Confirmed 11/02/23] levothyroxine 75 mcg tablet 75 mcg PO DAILY #90 tabs 10/26/23 [Rx Confirmed 11/02/23] irbesartan 300 mg tablet 300 mg PO DAILY #30 tabs 10/31/23 [Rx Confirmed 11/02/23] PFSH Medical History Allergies Anxiety Arthritis Carpal tunnel syndrome Depression Fusion of spine of cervical region GERD (gastroesophageal reflux disease) Hearing problem History of back problems History of blood transfusion History of frequent headaches Hypertension Medial meniscus tear Neuropathy Non-smoker Osteoarthritis Plantar fasciitis, left TBI (traumatic brain injury) Tear of medial meniscus of left knee Thyroid disease Wears glasses Surgical History H/O inguinal hernia repair H/O shoulder surgery H/O total hip arthroplasty History of appendectomy History of carpal tunnel release History of surgical procedure History of tonsillectomy S/P cholecystectomy Status post cervical spinal fusion Family History Mother Alcoholism Anxiety Arthritis Depression Hypertension Heart disease Mental disorder CVA (cerebral vascular accident) Thyroid disorder Atrial fibrillation DementiaUnknown ParkinsonsOther Allergies Social History household members: none current occupational status: retired current occupation: Smoking Status: Never smoker Electronic Cigarette Use: not used alcohol intake: current alcohol intake frequency: a few times a week substance use type: does not use do you feel safe at home: Yes HPI HPI HPI: Patient is a 53-year-old male who presents for heartburn and acid reflux. They are referred for surgical consultation from Dr. Nicolas. Mr. Oswald states that he is carried the diagnoses of GERD and hiatal hernia since approximately 2010. However, he has noted within the past year the development of both frequent nausea and vomiting. He shares that he awakens with the symptoms. He further details that he has not noticed any correlation with eating and has observed that the symptoms may persist for days on and before disappearing spontaneously. He also shares that in the months of October and November a year ago he required separate visits to the ER for the severity of the symptoms. Speaking of correlations, he notes that his symptoms did seem to get worse around the postoperative recovery from his gallbladder surgery. He has that it has been a rather recent phenomenon (as in the past 3 to 4 months) that Nexium has failed to take care of his symptoms reliably. He shares that he was trialed on Protonix 40 mg daily but had to go off this medication due to side effect of diarrhea. In addition to the symptoms of reflux, nausea, and vomiting Mr. Oswald does confirm some association with bloating. He denies any weight loss and in fact reports some weight gain. He estimates a 10 pound weight gain in the last couple of months. He attributes this to inactivity following orthopedic procedure. He also complains of some fatigue, but suggest that this is rather chronic and due to both his hypothyroidism as well as poor sleep quality. When asked about his chronic management of his GERD diagnosis he confirms that he does actively avoid triggers for symptoms by specifically avoiding foods such as soda, coffee, marinara sauces, and spicy foods. He also generally spaces out his mealtime from lying down by at least 4 hours. He does confess that he takes either aspirin or ibuprofen on a daily basis at least once daily. He confirms that he is always taking this medication with food. Patient does have a history of EGD 5 to 6 years ago when he was living in [facility]. He states that the results of this testing were unremarkable. Patient has no history of colonoscopy but has been reliably screening through [employer] and has had no remarkable results. He also suggest that he is not necessarily inclined to go with a colonoscopy due to negative experiences with his ex-. Patient has no family history for inflammatory bowel disease, diverticulitis, or colon cancer. ROS General General: Yes fatigue; No weight change, appetite, colon cancer, breast cancer or weakness HEENT HEENT: No difficulty swallowing, eye injury, eye surgery, swollen glands or hoarseness Endo Endocrine: Yes thyroid disease; No diabetes mellitus, thyroid cancer, Hair loss, heat intolerance or cold intolerance Skin Skin: No rash or changing moles Breast Breast: No left breast lump, right breast lump, nipple discharge, breast pain, abnormal mammogram, abnormal US or breast enlargement Musc Musculoskeletal: Yes back problems and arthritis; No rheumatoid arthritis, gout or joint pain Cardio Cardiovascular: Yes high blood pressure; No murmur, pacemaker, heart disease, atrial fibrillation, heart attack, heart stent, palpitations, shortness of breat with exertion or chest pain Psych Psychiatric: Yes depression and anxiety; No hearing voices Resp Respiratory: No shortness of breath, No sleep apnea, No cough, No COPD, No asthma, No emphysema and No wheezing Gastro Gastrointestinal: No abdominal pain, Yes nausea or vomiting, No diarrhea, No constipation, No blood in stool, Yes acid reflux, No hemorrhoids, No ulcers, Yes gallbladder problem and No black,tarry stools Pete Hematologic: No blood thinners, No blood disorders, No bleeding, No anemia and No blood clots Neuro Neurologic: No system reviewed and no additional complaints, except as documented, No as per HPI, No abnormal gait, No abnormal hearing, No abnormal movements, No abnormal speech, No behavioral changes, No burning sensations, No confusion, No convulsions, No disequilibrium, No dizziness, No localized weakness, No frequent falls, No headache(s), No lack of coordination, No loss of vision, No memory loss, Yes numbness, No other visual disturbances, No radicular pain, No restless legs, No sensory deficit, No syncope, Yes tingling, No tremor(s), No weakness and No other Exam Const General: cooperative, healthy appearing and comfortable Orientation: alert, awake and oriented x3 Resp Effort & Inspection: normal respiratory effort GI Other: Well-healed port site scars from prior laparoscopic procedure. Nondistended, soft, nontender to palpation x 4 quadrants Assessment and Plan Assessment and Plan (1) GERD (gastroesophageal reflux disease): Status: Acute Qualifiers: Esophagitis presence: esophagitis presence not specified Qualified Code(s): K21.9 - Gastro-esophageal reflux disease without esophagitis Comment: This is a 53-year-old male with a longstanding history of gastroesophageal reflux disease?recently more symptomatic and partially refractory to PPI therapy who presents for possible repeat EGD as well as consideration of possible antireflux surgery (specifically elicited). He also shares that he has been confirmed as having a hiatal hernia. We held a lengthy conversation regarding his symptoms and I suggested that this may also represent a case of a H pylori infection. To this end, I would plan to perform biopsies to test for this diagnosis. We also discussed, and a high level, possible antireflux surgery with fundoplication. I shared with him some of the side effects?including inability to easily belch or vomit and he stated that he cannot fathom that necessarily, but was also not completely against the idea given his symptoms. On hearing this response, I offered that we could perform ambulatory pH monitoring as well to obtain a DeMeester score. Mr. Oswald confirmed an interest with this offer so we will make this addition. Plan: Diagnostic EGD with biopsies for H. pylori as well as placement of pH probe I have examined the patient and the H&P has been reviewed. There are no clinical changes since date of exam. Patient does confirm that he is held his PPI medication appropriately for today's procedure. He denies any questions related to procedure. Will thus proceed with EGD and pH probe placement as discussed in greater detail above.
--- NOTE | 2024-01-19 09:00 | IMM_PTH ---
PATHOLOGY RESULTS PATIENT: MARCO OSWALD LOC: EN U#:[id number] AGE/SX: 53/M ROOM: RE01/19/[address]: Dr. Marco Em MD : 1970 BED: DIS: 01/19/2024 SPEC #: [id number] RECD: 01/19/24 14:01 STATUS: LATASHA REZev #: [id number] LISA: 01/19/24 09:[address]: Marco Em DEPT: IMMUNOHISTOCHEMISTRY RECD BY: Claudine Gottlieb ENTERED: 01/19/24 14:02 SP TYPE: IMMUNO OTHR DR: Dr. Muna Nicolas MD Tissues: Stomach, NOS Stomach, NOS Procedures: H Pylori (initial) P53 (initial) KI-67 (add) PHYSICIAN & INSTITUTION [place] [id number] SPECIMEN INFORMATION: Tissue Source: A - Antrum, C - Z-line Clinical Info: GERD Specimen Number: [id number] A & C CPT code: 56809 x2, 25430 METHODOLOGY: Deparaffinized sections of prefer/formalin-fixed tissue or PAP/DQ stained slides are incubated with monoclonal/polyclonal antibodies/oligonucleotide probes. Localization is made via biotin free immunoperoxidase method. Appropriate controls are performed and reacted as expected. Results on target cell population are indicated in the following table: RESULTS: ANTIBODY / CLONE RESULT Block A H Pylori (polyclonal) negative Block C P53 (DO-7) positive, wild type Ki-67 (30-9) positive, low These tests were developed and their performance characteristics determined by [facility]. They may not have been cleared or approved by the U.S. Food and Drug Administration. The FDA has determined that such clearance or approval is not necessary. The above immunohistochemical/dualISH markers are ordered and reviewed by the Pathologist. INTERPRETATION: A. Antrum, biopsy: Negative for Helicobacter pylori organisms. C. Z-line, biopsy: No evidence of dysplasia. AM:lola 01/23/2024
--- NOTE | 2024-01-19 09:00 | EGD_PTH ---
PATHOLOGY RESULTS PATIENT: MARCO OSWALD LOC: EN U#:[id number] AGE/SX: 53/M ROOM: RE01/19/[address]: Dr. Marco Em MD : 1970 BED: DIS: 01/19/2024 SPEC #: [id number] RECD: 01/19/24 10:42 STATUS: LATASHA HARKINS #: [id number] LISA: 01/19/24 09:[address]: Marco Em DEPT: SURGICAL PATHOLOGY RECD BY: Zina Dozier ENTERED: 01/19/24 10:44 SP TYPE: EGD BIOPSY OT DR: Dr. Muna Nicolas MD Tissues: Gastric mucous membrane Gastric mucous membrane Esophageal mucous membrane Procedures: Special Stain Group II Surgery Specimen Level IV Alcian Blue/PAS (control) HEADER OPERATION: EGD - PH probe and biopsies PRE-OP DIAGNOSIS: GERD TISSUE SUBMITTED: A - Antrum biopsy for H. pylori and path, B - Greater curvature polyp biopsy, C - Z-line biopsy MICROSCOPIC DIAGNOSIS A. Gastric antrum, biopsy: Chronic gastritis. See comment. B. Greater curvature polyp, biopsy: Gastric mucosa with focal hyperplastic change. C. Z-line, biopsy: Gastric mucosa with chronic inflammation. No evidence of goblet cell metaplasia. See comment. AM:lola 01/20/2024 COMMENT A. The results of immunohistochemistry for Helicobacter pylori will be reported separately ([id number]). C. Immunohistochemistry ([id number]) for P53 and Ki-67 will be performed and results will be reported separately. Alcian blue/PAS stain with matched control supports the above diagnosis. MICROSCOPIC DESCRIPTION Slides are reviewed. GROSS DESCRIPTION A - Received in fixative is one container labeled with the patient's name and designated antrum biopsy. The specimen consists of two irregular fragments of light byrne soft tissue that in aggregate measure 0.6 x 0.3 x 0.1 cm. The specimen is totally submitted in one cassette. B - Received in fixative is one container labeled with the patient's name and designated greater curvature polyp biopsy. The specimen consists of two irregular fragments of light byrne soft tissue that in aggregate measure 0.4 x 0.2 x 0.1 cm. The specimen is totally submitted in one cassette. C - Received in fixative is one container labeled with the patient's name and designated Z-line biopsy. The specimen consists of one irregular fragment of light byrne soft tissue that measures 0.3 x 0.3 x 0.1 cm. The specimen is totally submitted in one cassette. / LORNA:lola 01/19/2024 TC:3 CPT: 32234 x3, 41659
--- NOTE | 2024-01-19 09:26 | OP.EGD_ITS ---
Patient Name: Marco Gómez Procedure Date: 01/19/2024 8:35 AM Date of : 1970 Age: 53 Procedure: Upper GI endoscopy Indications: Gastro-esophageal reflux disease, Hiatal hernia Providers: Marco Em MD Referring MD: Muna Nicolas Md Medicines: See the Anesthesia note for documentation of the administered medications Patient Profile: Refer to note in patient chart for documentation of history and physical. Patient has symptoms of chronic heartburn. Complications: No immediate complications. Estimated blood loss: None. Procedure: Pre-Anesthesia Assessment: - The heart rate, respiratory rate, oxygen saturations, blood pressure, adequacy of pulmonary ventilation, and response to care were monitored throughout the procedure. After obtaining informed consent, the endoscope was passed under direct vision. Throughout the procedure, the patient's blood pressure, pulse, and oxygen saturations were monitored continuously. The Endoscope was introduced through the mouth, and advanced to the second part of duodenum. The upper GI endoscopy was accomplished without difficulty. The patient tolerated the procedure well. Scope In: 8:56:12 AM Scope Out: 9:15:50 AM Total Procedure Duration Time 0 hours 19 minutes 38 seconds Findings: No gross lesions were noted in the entire examined duodenum. No biopsies or other specimens were collected for this exam. Normal mucosa was found in the gastric antrum. Biopsies were taken with a cold forceps for Helicobacter pylori testing. Estimated blood loss was minimal. A single 2 mm sessile polyp with no bleeding and no stigmata of recent bleeding was found on the greater curvature of the stomach. Biopsies were taken with a cold forceps for histology. Estimated blood loss was minimal. The Z-line was irregular and was found 42 cm from the incisors. Biopsies were taken with a cold forceps for histology. Estimated blood loss was minimal. A small hiatal hernia was present. No biopsies or other specimens were collected for this exam. The exam was otherwise without abnormality. Normal mucosa was found in the entire esophagus. The MORE capsule with delivery system was introduced through the mouth and advanced into the esophagus, such that the MORE pH capsule was positioned 36 cm from the incisors, which was 6 cm proximal to the GE junction. The MORE pH capsule was then deployed and attached to the esophageal mucosa. The delivery system was then withdrawn. Endoscopy was utilized for probe placement and diagnostic evaluation. Impression: - No gross lesions in the entire examined duodenum. No specimens collected. - Normal mucosa was found in the antrum. Biopsied. - A single gastric polyp. Biopsied. - Z-line irregular, 42 cm from the incisors. Biopsied. - Small hiatal hernia. No specimens collected. - The examination was otherwise normal. - Normal mucosa was found in the entire esophagus. - The MORE pH capsule was deployed. Recommendation: - Discharge patient to home (via wheelchair). - Resume previous diet today. - Continue present medications. - Await pathology results. - Telephone my office for pathology results in 1 week. Procedure Code(s): --- Professional --- 16131, Esophagogastroduodenoscopy, flexible, transoral; with biopsy, single or multiple Diagnosis Code(s): --- Professional --- K31.7, Polyp of stomach and duodenum K22.89, Other specified disease of esophagus K44.9, Diaphragmatic hernia without obstruction or gangrene K21.9, Gastro-esophageal reflux disease without esophagitis CPT copyright 2021 [employer]. All rights reserved. The codes documented in this report are preliminary and upon auditing coder review may be revised to meet current compliance requirements. Marco Em MD 01/19/2024 9:26:32 AM This report has been signed electronically. Number of Addenda: 0 Note Initiated On: 01/19/2024 8:35 AM
--- NOTE | 2024-01-19 09:27 | OP.CCLET_ITS ---
01/19/2024 Muna Nicolas Md Re : Upper GI endoscopy procedure for Marco Dalia Dear Fidencio This procedure was performed on December. My impressions and recommendations are as follows: Impressions : - No gross lesions in the entire examined duodenum. No specimens collected. - Normal mucosa was found in the antrum. Biopsied. - A single gastric polyp. Biopsied. - Z-line irregular, 42 cm from the incisors. Biopsied. - Small hiatal hernia. No specimens collected. - The examination was otherwise normal. - Normal mucosa was found in the entire esophagus. - The Sum[employer] Render pH capsule was deployed. Recommendations : - Discharge patient to home (via wheelchair). - Resume previous diet today. - Continue present medications. - Await pathology results. - Telephone my office for pathology results in 1 week. My findings are described in the full procedure note, which is enclosed. If I can be of further assistance, please feel free to contact me at Doctor phone number(s): , Work: . Sincerely, Marco Em MD 01/19/2024 9:26:32 AM This report has been signed electronically.
== END 2024-01-19 09:57 | disposition home or self-care (01) ==
LOC: EN 07:42 → AC 07:43
PROVIDERS: PCP Internal Medicine; Referring Provider Internal Medicine; Visit Provider Surgery
PROC: (CPT 43235; principal; 2024-01-19 08:55)
DX: K29.50 Unspecified chronic gastritis without bleeding (principal); K21.9 Gastro-esophageal reflux disease without esophagitis; K31.7 Polyp of stomach and duodenum; K44.9 Diaphragmatic hernia without obstruction or gangrene; K22.89 Other specified disease of esophagus
CPT/HCPCS: 43239; 88305; 88313; 88341; 88342; J7120; J2405

== ENCOUNTER → 2025-08-21 | Outpatient (CLI) | payer OTHER, SELFPAY ==
--- NOTE | 2025-08-21 12:57 | MRI_ITS ---
PROCEDURE: LOWER EXT/NO JT/W/O 08/21/2025 REASON FOR EXAM: ASSESS TIB POST TENDONITIS / TEARS TECHNIQUE: Procedure Code: MRILENJ Modality: MR Procedure: MRI of the left foot and ankle. Multiplanar and multisequence images were obtained without IV contrast administration. COMPARISON: COMPARISON : Left ankle and left foot series of 08/01/2025. FINDINGS: Bone and bone Marrow: Again seen is a large inferior calcaneal spur. No acute osseous signal changes noted. Mild degenerative changes are seen throughout the midfoot toes. Csmu-wo-uihnsyro degenerative changes are seen of the 1st metatarsophalangeal joint and 1st interphalangeal joint. Effusion: No joint effusion is evident. Soft Tissues: No soft tissue mass is seen. No free or loculated fluid collection is evident. Ligaments and Tendons: Thickening and inhomogeneous signal of the proximal plantar fascia is seen, consistent with chronic changes of plantar fasciitis. The Achilles tendon appears intact. No tendon or ligament injury is seen. MRI/Lower Ext/No Jt/w/o IMPRESSION: Mild degenerative changes as noted. Large inferior calcaneal spur again noted. Chronic appearing plantar fasciitis. No significant tendon pathology is noted. Reading Location: [id number]
== END | disposition home or self-care (01) ==
LOC: MRI 12:49
PROVIDERS: Referring Provider Orthopaedic Surgery Sports Medicine; Visit Provider Orthopaedic Surgery Sports Medicine
DX: M79.672 Pain in left foot (principal); M72.2 Plantar fascial fibromatosis
CPT/HCPCS: 73718